=== PATIENT | male | born 1990 | race Caucasian/White ===

== ENCOUNTER 2018-02-26 18:32 | Emergency (ER) | payer OTHER ==
[2018-02-26] MEDS ORDERED: Lidocaine 1% (PF) 30 ML VIAL ONE ×2 (18:47→18:48)
[2018-02-26] MEDS ORDERED: Bacitracin Zinc 1 Packet ONE (18:59)
== END 2018-02-26 19:17 | disposition home or self-care (01) ==
LOC: NAV ERS 18:32
DX: S61.012A Laceration without foreign body of left thumb without damage to nail, initial encounter (principal); F90.9 Attention-deficit hyperactivity disorder, unspecified type; I10 Essential (primary) hypertension; F17.210 Nicotine dependence, cigarettes, uncomplicated; Z79.899 Other long term (current) drug therapy; W26.0XXA Contact with knife, initial encounter
CPT/HCPCS: 12001; J2001